=== PATIENT | female | born 1985 | race American Indian/Alaskan Native ===

== ENCOUNTER 2017-07-10 12:01 | Emergency (ER) | payer OTHER ==
[2017-07-10 12:12] VITALS: BP 122/69
[2017-07-10] MEDS ORDERED: ATROVENT IH ONE (12:57)
[2017-07-10] MEDS ORDERED: PROVENTIL IH ONE (12:57)
[2017-07-10] MEDS ORDERED: DECADRON IM ONE (12:57)
--- NOTE | 2017-07-10 13:06 | Emergency Department Report ---
ED Asthma HPI - General Chief Complaint: Adult Asthma Stated Complaint: CHEST PAIN Time Seen by Provider: 07/10/17 12:49 Source: patient Mode of arrival: Ambulatory Limitations: No Limitations - History of Present Illness Initial Comments: This is a 32-year-old female nontoxic, well nourished in appearance, no acute signs of distress presents to the ED with c/o of wheezing and shortness of breathe x1 day. Patient stated has a been outside in the pollen yesterday with son and now developed these symptoms. Patient stated that symptoms first started with cough. Patient stated cough is dry and nonproductive. Patient denies any recent travels, long car, recent hospital stays. Patient denies any calf pain or calf tenderness. Patient denies any chest pain, short of breath, fever, chills, nausea, vomiting, hemoptysis, numbness, tingling, headache or stiff neck. Patient denies any allergies. Denies any PMH. Patient stated that she is out of her inhaler. MD Complaint: "asthma attack", wheezing -: This morning Asthma History: childhood onset Severity: mild Context: none known Associated Symptoms: dry cough - Related Data Current Asthma Therapy: none Previous Rx's Medication Instructions Recorded Last Taken Type Ibuprofen [Motrin] 800 mg PO Q8H PRN #15 tablet 06/15/13 Unknown Rx ALBUTEROL Inhaler [ProAir HFA 2 puff IH QID PRN #1 inhalation 07/10/17 Unknown Rx Inhaler] Fluticasone [Flonase] 1 spray NS QDAY #1 bottle 07/10/17 Unknown Rx Loratadine [Claritin] 10 mg PO DAILY #30 tablet 07/10/17 Unknown Rx Prednisone [predniSONE 10 mg 10 mg PO .TAPER #1 tab.ds.pk 07/10/17 Unknown Rx (6-Day Pack, 21 Tabs)] Allergies Allergy/AdvReac Type Severity Reaction Status Date / Time No Known Allergies Allergy Verified 07/10/17 12:09 ED Review of Systems ROS: Stated complaint: CHEST PAIN Other details as noted in HPI Constitutional: denies: chills, fever Eyes: denies: eye pain, eye discharge, vision change ENT: denies: ear pain, throat pain Respiratory: cough, shortness of breath, wheezing Cardiovascular: denies: chest pain, palpitations Endocrine: no symptoms reported Gastrointestinal: denies: abdominal pain, nausea, diarrhea Genitourinary: denies: urgency, dysuria, discharge Musculoskeletal: denies: back pain, joint swelling, arthralgia Skin: denies: rash, lesions Neurological: denies: headache, weakness, paresthesias Psychiatric: denies: anxiety, depression Hematological/Lymphatic: denies: easy bleeding, easy bruising ED Past Medical Hx - Past Medical History Hx Asthma: Yes - Surgical History Additional Surgical History: laproscopic - Social History Smoking Status: Current Every Day Smoker Substance Use Type: None - Medications Home Medications: Home Medications Medication Instructions Recorded Confirmed Last Taken Type Ibuprofen [Motrin] 800 mg PO Q8H PRN #15 tablet 06/15/13 Unknown Rx ALBUTEROL Inhaler [ProAir HFA 2 puff IH QID PRN #1 inhalation 07/10/17 Unknown Rx Inhaler] Fluticasone [Flonase] 1 spray NS QDAY #1 bottle 07/10/17 Unknown Rx Loratadine [Claritin] 10 mg PO DAILY #30 tablet 07/10/17 Unknown Rx Prednisone [predniSONE 10 mg 10 mg PO .TAPER #1 tab.ds.pk 07/10/17 Unknown Rx (6-Day Pack, 21 Tabs)] ED Physical Exam - General Limitations: No Limitations General appearance: alert, in no apparent distress - Head Head exam: Present: atraumatic, normocephalic - Eye Eye exam: Present: normal appearance Pupils: Present: normal accommodation - ENT ENT exam: Present: normal exam, mucous membranes moist - Neck Neck exam: Present: normal inspection, full ROM. Absent: tenderness, meningismus, lymphadenopathy - Respiratory Respiratory exam: Present: normal lung sounds bilaterally, wheezes (bilateral upper and lower lobes). Absent: respiratory distress, rales, rhonchi, stridor, chest wall tenderness, accessory muscle use, decreased breath sounds, prolonged expiratory - Cardiovascular Cardiovascular Exam: Present: regular rate, normal rhythm, normal heart sounds. Absent: irregular rhythm, systolic murmur, diastolic murmur, rubs, gallop - GI/Abdominal GI/Abdominal exam: Present: soft, normal bowel sounds. Absent: distended, tenderness, guarding, rebound, rigid, diminished bowel sounds - Rectal Rectal exam: Present: deferred - Extremities Exam Extremities exam: Present: normal inspection, full ROM, normal capillary refill. Absent: tenderness, calf tenderness - Back Exam Back exam: Present: normal inspection, full ROM - Neurological Exam Neurological exam: Present: alert, oriented X3, normal gait - Psychiatric Psychiatric exam: Present: normal affect, normal mood - Skin Skin exam: Present: warm, dry, intact, normal color. Absent: rash ED Course Vital Signs 07/10/17 07/10/17 07/10/17 12:09 13:11 14:11 Temperature 98.1 F Pulse Rate 99 H Pulse Rate [ 82 88 Bilateral] Respiratory 18 Rate Respiratory 16 16 Rate [Bilateral ] Blood Pressure 122/69 O2 Sat by Pulse 97 Oximetry 07/10/17 15:06 Temperature Pulse Rate 91 H Pulse Rate [ Bilateral] Respiratory 18 Rate Respiratory Rate [Bilateral ] Blood Pressure O2 Sat by Pulse 99 Oximetry - Reevaluation(s) Reevaluation #1: 07/10/17 13:09 Patient is speaking in full sentences with no signs of distress noted. ED Medical Decision Making - Medical Decision Making This is a 32-year-old male that presents with asthma exacerbation. Patient is stable and was examined by me. Chest x-ray has been obtained and dictated by the radiologist within normal limits. Patient is notified of the x-ray report with no questions noted by the patient. Patient did receive breathing breathing over an hour and steroids in the ED which patient the symptoms has resolved and subsided. Posttreatment and there is no wheezing upon auscultation. Patient is discharged with albuterol and prednisone. Patient was referred to Follow-up with a primary care doctor in 3-5 days or if symptoms worsen and continue return to emergency room as soon as possible. At time of discharge, the patient does not seem toxic or ill in appearance. No acute signs of distress noted. Patient agrees to discharge treatment plan of care. No further questions noted by the patient. This chart is dictated with using [employer] Dictation Program Critical care attestation.: If time is entered above; I have spent that time in minutes in the direct care of this critically ill patient, excluding procedure time. ED Disposition Clinical Impression: Asthma exacerbation Qualifiers: Asthma severity: mild Asthma persistence: intermittent Qualified Code(s): J45.21 - Mild intermittent asthma with (acute) exacerbation Disposition: - TO HOME OR SELFCARE Is pt being admited?: No Does the pt Need Aspirin: No Condition: Stable Instructions: Albuterol (By mouth), Prednisone (By mouth), Asthma (ED) Additional Instructions: Follow-up with a primary care doctor in 3-5 days or if symptoms worsen and continue return to emergency room as soon as possible. Prescriptions: ALBUTEROL Inhaler [ProAir HFA Inhaler] 2 puff IH QID PRN #1 inhalation PRN Reason: Shortness Of Breath Fluticasone [Flonase] 1 spray NS QDAY #1 bottle Loratadine [Claritin] 10 mg PO DAILY #30 tablet Prednisone [predniSONE 10 mg (6-Day Pack, 21 Tabs)] 10 mg PO .TAPER #1 tab.ds.pk Referrals: PRIMARY CARE, [Primary Care Provider] - 3-5 Days LONNIE CHAVARRIA MD [Staff Physician] - 3-5 Days [facility] [Outside] - 3-5 Days [facility] [Outside] - 3-5 Days Forms: Work/School Release Form(ED)
--- NOTE | 2017-07-10 14:22 | XRay Report ---
ROUTINE CHEST, TWO VIEWS: HISTORY: Wheezing. The trachea, heart, mediastinal contour, lung bertrand and bony thorax are unremarkable. IMPRESSION: Unremarkable chest x-ray.
== END 2017-07-10 15:06 | disposition home or self-care (01) ==
LOC: ED 12:01
DX: J45.901 Unspecified asthma with (acute) exacerbation (principal); F17.200 Nicotine dependence, unspecified, uncomplicated
CPT/HCPCS: 71046; 94644; 99283; J1100

== ENCOUNTER 2018-04-14 12:08 | Emergency (ER) | payer OTHER ==
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
[2018-04-14 13:08] LABS: Bilirubin,Urine NEG (Negative); Blood,Urine NEG (Negative); Color,Urine Yellow (Yellow); Mucus,Urine FEW /HPF; Protein,Urine <15 mg/dL mg/dL (Negative); Urobilinogen,Urine < 2.0 mg/dL (<2.0)
[2018-04-14 13:47] LABS: Basophils % (Auto) 0.5 % (0.0-1.8); Eosinophils # (Auto) 0.1 K/mm3 (0.0-0.4); Eosinophils % (Auto) 1.7 % (0.0-4.3); Hematocrit 37.2 % (30.3-42.9); Hemoglobin 12.6 gm/dl (10.1-14.3); Lymphocytes # (Auto) 2.2 K/mm3 (1.2-5.4); Lymphocytes % (Auto) 27.8 % (13.4-35.0); Mean Corpuscular HGB Conc 34 % (30-34); Mean Corpuscular Volume 94 fl (79-97); Monocytes # (Auto) 0.7 K/mm3 (0.0-0.8); Monocytes % (Auto) 8.5 % (0.0-7.3); Platelet Count 212 K/mm3 (140-440); Red Blood Count 3.95 M/mm3 (3.65-5.03); Red Cell Distribution Width 13.2 % (13.2-15.2)
[2018-04-14 14:05] LABS: BUN/Creatinine Ratio 25; Blood Urea Nitrogen 10 mg/dL (7-17); Calcium 8.9 mg/dL (8.4-10.2); Hemolysis Index 12
[2018-04-14] MEDS ORDERED: TYLENOL PO ONE (16:14)
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
--- NOTE | 2018-04-14 18:04 | Ultrasound Report ---
FINAL REPORT EXAM: US OB TRANSVAGINAL HISTORY: pelvic pain TECHNIQUE: Real-time sonography was performed of the pelvis transabdominally and endovaginally and i mages are submitted for interpretation. PRIORS: None. FINDINGS: The uterus has a grossly normal appearing gestational sac. There is a very small subchorionic bleed. There is a normal appearing pole measuring 0.84 centimeters for an estimated gestational age of 6 weeks 6 days. Average sac diameter is 2.44 cm for an estimated gestational age of 7 weeks 3 days. A normal-appearing yolk sac is identified. The heart is beating at a rate of 135 beats per matt te. There is a small amount of fluid throughout endocervical canal measuring 2 mm in thickness. The right ovary appears normal measuring 2.3 x 1.1 x 1.4 cm. The left ovary measures 4.8 x 2.3 x 3.6 cm. There is a corpus luteal cyst in the left ovary measuring 2.3 x 1.7 x 1.8 cm. There is a collapse d cyst or follicle in the left ovary measuring 1.2 x 1.0 x 1.2 cm. IMPRESSION: 1. Single live intrauterine gestation, estimated gestational age by ultrasound is 7 weeks 1 day for a n estimated confinement of 11/30/2018 2. Very small subchorionic bleed 3. Two small cysts in the left ovary 4. Small amount of fluid in the endocervical canal without significant dilatation
--- NOTE | 2018-04-14 18:08 | Ultrasound Report ---
FINAL REPORT EXAM: US OB < = 14 WEEKS FETUS HISTORY: pelvic pain quantitative beta HCG level is 36,895 TECHNIQUE: Real-time sonography was performed of the pelvis transabdominally and endovaginally and i mages are submitted for interpretation. PRIORS: None. FINDINGS: The uterus has a grossly normal appearing gestational sac. There is a very small subchorionic bleed. There is a normal appearing pole measuring 0.84 centimeters for an estimated gestational age of 6 weeks 6 days. Average sac diameter is 2.44 cm for an estimated gestational age of 7 weeks 3 days. A normal-appearing yolk sac is identified. The heart is beating at a rate of 135 beats per matt te. The right ovary appears normal measuring 2.3 x 1.1 x 1.4 cm. The left ovary measures 4.8 x 2.3 x 3.6 cm. There is a corpus luteal cyst in the left ovary measuring 2.3 x 1.7 x 1.8 cm. There is a collapse d cyst or follicle in the left ovary measuring 1.2 x 1.0 x 1.2 cm. IMPRESSION: 1. Single live intrauterine gestation, estimated gestational age by ultrasound is 7 weeks 1 day for a n estimated confinement of 11/30/2018 2. Very small subchorionic bleed 3. Two small cysts in the left ovary
[2018-04-14 18:14] VITALS: BP 93/52
== END 2018-04-14 18:19 | disposition home or self-care (01) ==
LOC: ED 12:08
DX: O9A.211 Injury, poisoning and certain other consequences of external causes complicating pregnancy, first trimester (principal); S39.91XA Unspecified injury of abdomen, initial encounter; Z3A.01 Less than 8 weeks gestation of pregnancy; X58.XXXA Exposure to other specified factors, initial encounter; J45.909 Unspecified asthma, uncomplicated; Y93.89 Activity, other specified; Y92.89 Other specified places as the place of occurrence of the external cause; Y99.8 Other external cause status
CPT/HCPCS: 36415; 76801; 76817; 80048; 81001; 84702; 85025